=== PATIENT | female | born 1995 | race Hispanic/Latino ===

== ENCOUNTER 2023-04-26 11:29 | Emergency (ER) | payer OTHER ==
[~2023-04-26] VITALS: Ht 167.6 cm; Wt 119.5 kg
[2023-04-26] MEDS ORDERED: KETOROLAC TROMETHAMINE 60 MG/2 ML VIAL IM STA (12:07)
[2023-04-26] MEDS ORDERED: LISINOPRIL10 MG PO (12:44)
[2023-04-26] MEDS ORDERED: FENOFIBRATE134 MG (12:44)
[2023-04-26] MEDS ORDERED: HUMULIN R100 UNIT/2 INJ (12:44)
[2023-04-26] MEDS ORDERED: PROPRANOLOL HCL10 MG PO (12:44)
[2023-04-26 13:14] VITALS: O2SAT 98
== END 2023-04-26 13:14 | disposition home or self-care (01) ==
LOC: FSED 11:38
DX: R07.89 Other chest pain (principal); M54.32 Sciatica, left side; I10 Essential (primary) hypertension; E11.9 Type 2 diabetes mellitus without complications
CPT/HCPCS: 71046; 82553; 84484; 93005; 96372; 99284; J1885